=== PATIENT | male | born 1970 | race Two or more races ===

== ENCOUNTER 2024-06-08 09:36 | Emergency (ER) | payer MEDICAID ==
[~2024-06-08] VITALS: Ht 154.9 cm; Wt 77.1 kg
[~2024-06-08 09:36] MED LIST: BENA20TA9 PO; BISO10TA PO; DAPA10TA PO; METF-442 PO; ROSU20TA2 PO
[2024-06-08] MEDS ORDERED: ACETAMINOPHEN ES 500 MG TABLET ONE (10:01)
[2024-06-08] MEDS: ACETAMINOPHEN ES 500 MG TABLET PO ONE (10:03)
[2024-06-08] MEDS ORDERED: NAPR-1164 PO (11:10)
[2024-06-08 11:41] VITALS: BP 143/90; TEMP 98.5; O2SAT 99
== END 2024-06-08 11:42 | disposition home or self-care (01) ==
LOC: ER 09:42
DX: S22.42XA Multiple fractures of ribs, left side, initial encounter for closed fracture (principal); I10 Essential (primary) hypertension; E11.9 Type 2 diabetes mellitus without complications; Z79.84 Long term (current) use of oral hypoglycemic drugs; Z79.899 Other long term (current) drug therapy; W01.0XXA Fall on same level from slipping, tripping and stumbling without subsequent striking against object, initial encounter; Y93.89 Activity, other specified; Y92.89 Other specified places as the place of occurrence of the external cause; Y99.8 Other external cause status
CPT/HCPCS: 71100-TC